=== PATIENT | female | born 1965 | race Caucasian/White ===

== ENCOUNTER 2025-03-30 08:40 | Emergency (ER) | payer BC ==
[~2025-03-30] VITALS: Ht 170.2 cm; Wt 82.0 kg
[2025-03-30 09:01] VITALS: TEMP 97.7
--- NOTE | 2025-03-30 09:23 | Physician Documentation ---
History of Present Illness ~ Chief Complaint: Back Pain Stated Complaint: BACK PAIN Time Seen by MD: 08:50 HPI 60-year-old female with a month of back pain and sciatica presents to the ED. she states she was seen in the clinic earlier this week and was prescribed naproxen and cyclobenzaprine. Reports that the medication has not helped with the your symptoms in she has requesting further evaluation. She denies any numbness tingling incontinence fever or saddle anesthesia. He also decide denies any acute injury. The patient is a registered dental assistant grocery by [employer] and spends most of her work days slightly bent over working on patient's. He is likely what caused her initial symptoms. She reports there only alleviating factors are when she is standing. Day of Onset: Mar 30, 2025 Medication Reconciliation Allergies: Uncoded Allergies: PCN (Allergy, Unknown, 03/30/25) REACTION HAPPENED WHEN LITTLE Scheduled PRN Hydrocodone Bit/Acetaminophen 5/325 MG ([place] 5/325 MG), 1 TAB PO Q6H PRN for pain Review of Systems All Other Systems at this time: Reviewed and Negative ROS As stated above in the HPI, otherwise all systems are reviewed and negative. Physical Exam Physical Exam Vital Signs: Temperature: 97.7, Source: Oral, Heart Rate: 72, Respiratory Rate: 16, BP: 125/86, Pulse Oximetry: 100, Weight: 82.000 Physical Exam General: Alert, no apparent distress. Neck: Full range of motion. back: tender to lumbar region via palpation Respiratory: Lungs clear, no respiratory distress. Chest: No accessory muscle use. Cardiovascular: Regular rate and rhythm, no murmurs. Progress Results/Orders Results/Orders Completed Orders - DELVIS FRENCH NP Ketorolac Trometh 30mg/Ml Vial (Toradol (03/30/25 09:10) Morphine 4mg/Ml Inj. (Morphine Inj.) (03/30/25 09:20) Medications Received in ER Medications (Trade) Dose Ordered Sig/[place]vador Route PRN Reason Start Time Stop Time Status Last Admin Dose Admin (Toradol inj. 30mg/ml) 30 mg ONCE ONCE IM 03/30/25 09:10 03/30/25 09:11 DC 03/30/25 09:33 30 MG (morphine inj.) 4 mg ONCE ONCE IM 03/30/25 09:20 03/30/25 09:21 DC 03/30/25 09:42 4 MG Vital Signs 03/30/25 03/30/25 03/30/25 03/30/25 08:49 09:01 09:33 09:42 Temp 97.7 97.7 Pulse 71 72 Resp 16 16 16 16 B/P (MAP) 125/86 125/86 (99) Pulse Ox 100 100 03/30/25 03/30/25 03/30/25 10:15 10:41 10:41 Pulse 77 Resp 12 16 16 B/P (MAP) 120/57 (78) Medical Decision Making Findings Spoke at length with this patient in her explaining that they need to follow up with the primary care for further evaluation of her lumbar pain and sciatica. Explained the necessity of obtain an MRI in the outpatient setting along with getting a referral to physical therapy for long-term symptomatic relief in addition I think she would benefit from potentially medical leave from her job while she recovers. 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 Differential Dx:Considerations: Include: AAA, Aortic dissection, , Appendicitis, Bowel obstruction, Cholelithiasis, Cholangitis, DJD, Ectopic , Fracture, Hepatitis, HNP, Musculoskeletal pain, Pancreatitis, Pyelonephritis, Strain, Urinary obstruction, Urolithiasis, Ovarian torsion, Other Departure Disposition: 01 HOME / SELF CARE / HOMELESS (ERASED) Impression: Primary Impression: Low back pain Additional Impression: Strain of lumbar region Condition: Stable Discharge Instructions: Sciatica, Lumbosacral Strain, Acute Back Pain, Adult Additional Instructions: I instructed it is important that she follow up with primary care. You would likely benefit from an MRI and a referral to physical therapy. She has short script of [place] to help you get over the worst of your back pain however physical therapy we will be the main modality of medicine in order to obtain relief Departure Forms: Excuse form Work or School Excused From: Work Excuse beginning now through the following date: Apr 13, 2025 May Return but still avoid physical Activity from now until: Apr 13, 2025 May Return to full physical activity as of: Apr 13, 2025 Referrals: NO PRIMARY CARE PROVIDER (PCP) Prescriptions Hydrocodone Bit/Acetaminophen 5/325 MG ([place] 5/325 MG) 5 Mg/325 Mg Tablet 1 TAB PO Q6H PRN for pain, #14 TAB Prov: DELVIS FRENCH NP 03/30/25 Signature Scribe Signature: f Attestation: Scribed for Delvis French [employer] Maintenance Clerk by Delvis Main NP . 03/30/25 09:53 DELVIS FRENCH NP Mar 30, 2025 09:22
[2025-03-30] MEDS: ketorolac trometh 30MG/ML vial 30 MG/ML VIAL IM ONE (09:33)
[2025-03-30] MEDS: morphine 4 MG/ML inj SYRINge IM ONE (09:42)
[2025-03-30 10:41] VITALS: RESP 16
[2025-03-30] MEDS ORDERED: HYDR-3965 PO (10:42)
[2025-03-30 11:06] VITALS: BP 132/73; PULSE 92; O2SAT 98
== END 2025-03-30 11:10 | disposition home or self-care (01) ==
LOC: ER 08:42
DX: S39.012A Strain of muscle, fascia and tendon of lower back, initial encounter (principal); X58.XXXA Exposure to other specified factors, initial encounter; Y93.89 Activity, other specified; Y92.89 Other specified places as the place of occurrence of the external cause; Y99.8 Other external cause status
CPT/HCPCS: 96372; 99284; J1885; J2270